=== PATIENT | female | born 1970 | race Caucasian/White ===

== ENCOUNTER 2016-10-17 22:00 | Emergency (ER) | payer SELFPAY ==
[~2016-10-17] VITALS: Ht 157.5 cm; Wt 64.4 kg
[2016-10-17 22:20] VITALS: BP 111/77
--- NOTE | 2016-10-17 23:48 | NUR ---
TO ER BED 8
--- NOTE | 2016-10-17 23:55 | NUR ---
PT BIB FAMILY C/O ABDOMINAL WITH FEELING NAUSEATED X 3 DAYS. HX. DM. PT DENIES N/V/D; SKIN IS INTACT, PINK/WARM/DRY; AAOX4, PERRL, WITH EVEN AND STEADY GAIT; LUNGS CLEAR BL, BREATHING UNLABORED; HR EVEN AND REGULAR, BL PERIPHERAL PULSES PRESENT; BS ACTIVE X4, NO TENDERNESS TO PALPATION. PT DENIES ANY FEVER, CP, SOB, OR COUGH AT THIS TIME; PT STATES 5/10 PAIN AT THIS TIME; VSS; PATIENT POSITIONED FOR COMFORT; HOB ELEVATED; BEDRAILS UP X2; BED DOWN.
[2016-10-18] MEDS ORDERED: KETOROLAC 60 MG/2 ML VIAL IM ONE
[2016-10-18 00:38] VITALS: BP 109/73
--- NOTE | 2016-10-18 00:39 | NUR ---
Patient discharged with v/s stable. Written and verbal after care instructions given and explained. Patient alert, oriented and verbalized understanding of instructions. Ambulatory with steady gait. All questions addressed prior to discharge. ID band removed. Patient advised to follow up with PMD. Rx of LACTULOSE 10MG/15ML BID, MAGNESIUM CITRATE LOW SODIUM 300CC BID X 2DAYS. given. Patient educated on indication of medication including possible reaction and side effects. Opportunity to ask questions provided and answered.
== END 2016-10-18 00:38 | disposition home or self-care (01) ==
LOC: MED 22:00
DX: K59.00 Constipation, unspecified (principal)
CPT/HCPCS: 74022; 81025; 82948; 96372; 99283; J1885; 99284

== ENCOUNTER 2022-03-09 06:17 | Day surgery (SDC) | payer OTHER ==
[~2022-03-09] VITALS: Ht 157.5 cm; Wt 60.8 kg
[2022-03-09] MEDS ORDERED: fentaNYL citrate 0.05 MG/ML VIAL ONE (07:18)
[2022-03-09] MEDS ORDERED: diphenhydrAMINE 50 MG/ML VIAL ONE (07:18)
[2022-03-09] MEDS ORDERED: MIDAZOLAM 5 MG/5 ML VIAL ONE (07:19)
[2022-03-09] MEDS ORDERED: LIDOCAINE 2% 100 MG/5 ML UJET TP ONE (07:19)
[2022-03-09] MEDS ORDERED: fentaNYL citrate 0.05 MG/ML VIAL IVP ONE (09:20)
[2022-03-09] MEDS ORDERED: MIDAZOLAM 5 MG/5 ML VIAL IV ONE (09:20)
== END 2022-03-09 08:40 | disposition home or self-care (01) ==
LOC: MDS 06:17 → MMU 06:18 → MDS 08:40
PROVIDERS: ATTEND Internal Medicine Gastroenterology
DX: Z12.11 Encounter for screening for malignant neoplasm of colon (principal); K63.5 Polyp of colon; E11.9 Type 2 diabetes mellitus without complications; E78.5 Hyperlipidemia, unspecified; Z79.84 Long term (current) use of oral hypoglycemic drugs; Z79.899 Other long term (current) drug therapy
CPT/HCPCS: 45385; 87426; 88300; J2250; J3010; J1200